=== PATIENT | male | born 1960 | race Caucasian/White ===

== ENCOUNTER 2018-04-16 06:17 | Inpatient (IN) | payer BC, OTHER ==
[~2018-04-16] VITALS: Ht 180.3 cm; Wt 126.0 kg
[2018-04-16] MEDS ORDERED: NITROGLYCERIN SINGLE TAB 0.4 MG SL ONE ×2 (06:37→06:59)
[2018-04-16] MEDS ORDERED: MORPHINE SULFATE 4 MG/ML, 1ML ONE ×2 (06:38→06:59)
[2018-04-16] MEDS ORDERED: METOPROLOL 1 MG/ML, 5ML ONE ×2 (06:38→06:59)
[2018-04-16] MEDS ORDERED: ASPIRIN 81 MG TABLET CHEW ONE (06:59)
[2018-04-16] MEDS ORDERED: METOPROLOL 1 MG/ML, 5ML IVPush PRN (07:00)
[2018-04-16] MEDS ORDERED: NITROGLYCERIN SINGLE TAB 0.4 MG SL PRN (07:00)
[2018-04-16] MEDS ORDERED: ASPIRIN 81 MG TABLET CHEW PO ONE (07:00)
[2018-04-16] MEDS ORDERED: MORPHINE SULFATE 4 MG/ML, 1ML IVPush PRN (07:00)
[2018-04-16 07:01] LABS: BASOPHILS # (AUTO) 0.03 x10^3/uL (0-0.1); BASOPHILS % (AUTO) 1 % (0-1); EOSINOPHILS # (AUTO) 0.11 x10^3/uL (0-0.4); EOSINOPHILS % (AUTO) 2 % (1-7); LYMPHOCYTES # (AUTO) 2.26 x10^3/uL (1-3.4); LYMPHOCYTES % (AUTO) 38 % (22-44); MD NO; MEAN CORPUSCULAR HEMOGLOBIN 30.8 pg (27.5-34.5); MEAN CORPUSCULAR HGB CONC 34.4 g/dL (33.2-36.2); MEAN CORPUSCULAR VOLUME 89.4 fL (81-97); MEAN PLATELET VOLUME 8.6 fL (7.4-10.4); MONOCYTES # (AUTO) 0.52 x10^3/uL (0.2-0.8); MONOCYTES % (AUTO) 9 % (2-9); NEUTROPHILS # (AUTO) 3.06 x10^3/uL (1.8-6.8); NEUTROPHILS % (AUTO) 51 % (42-75); PLATELET COUNT 227 x10^3/uL (130-400); RED BLOOD COUNT 5.27 x10^6/uL (4.38-5.82); RED CELL DISTRIBUTION WIDTH 13.2 % (9.4-14.8)
[2018-04-16 07:13] LABS: ALANINE AMINOTRANSFERASE 61 U/L (12-78); ALBUMIN 3.6 g/dL (3.4-5.0); ANION GAP 8 mmol/L (5-15); CALCIUM 8.6 mg/dL (8.5-10.1); CHLORIDE 109 mmol/L (98-107); CREATININE 1.08 mg/dL (0.7-1.3)
[2018-04-16 07:16] LABS: ALKALINE PHOSPHATASE 130 U/L (45-117); BILIRUBIN,TOTAL 0.5 mg/dL (0.2-1.0); TOTAL PROTEIN 7.3 g/dL (6.4-8.2)
[2018-04-16] MEDS ORDERED: ACETAMINOPHEN 325 MG TABLET PO PRN ×2 (07:30→15:30)
[2018-04-16] MEDS ORDERED: NITROGLYCERIN 0.4 MG BOTTLE (25 TABS) SL PRN (07:30)
[2018-04-16] MEDS ORDERED: ZOLPIDEM 5MG TABLET PO PRN (07:30)
[2018-04-16] MEDS ORDERED: ONDANSETRON 2MG/ML, 2ML IVP PRN (07:30)
[2018-04-16] MEDS ORDERED: NITROGLYCERIN 0.4 MG/SPRAY SL PRN (07:30)
[2018-04-16] MEDS ORDERED: morphine SULFATE 10 MG/ML, 1ML IV PRN (07:30)
[2018-04-16] MEDS ORDERED: FENTANYL PF 100 MCG/2ML ONE ×2 (07:35→08:34)
[2018-04-16] MEDS ORDERED: MIDAZOLAM 1 MG/ML, 5ML ONE (07:35)
[2018-04-16] MEDS ORDERED: VERAPAMIL 2.5 MG/ML, 2ML ONE (07:35)
[2018-04-16] MEDS ORDERED: HEPARIN 1,000 UNITS/ML, 10ML ONE (07:36)
[2018-04-16] MEDS ORDERED: LIDOCAINE 2%, 2ML ONE (07:36)
[2018-04-16] MEDS ORDERED: PRASUGREL 10 MG TABLET ONE (07:36)
[2018-04-16] MEDS ORDERED: BIVALIRUDIN 250 MG ONE ×2 (07:36→08:34)
[2018-04-16] MEDS ORDERED: NITROGLYCERIN 5 MG/ML, 10ML ONE (07:36)
[2018-04-16] MEDS ORDERED: ASPI-496 PO (07:59)
[2018-04-16] MEDS ORDERED: Benazepril PO (07:59)
[2018-04-16] MEDS ORDERED: HYDROCHLORATHIAZIDE PO (07:59)
[2018-04-16 08:22] LABS: CHOLESTEROL, TOTAL 232 mg/dL (140-239); HDL CHOL % 9 % (26-37); HDL CHOLESTEROL (DIRECT) 21 mg/dL (40-60); TRIGLYCERIDES 736 mg/dL (50-200)
[2018-04-16 08:27] LABS: TROPONIN I 0.366 ng/mL (0.000-0.045)
[2018-04-16] MEDS ORDERED: MIDAZOLAM 1 MG/ML, 2ML ONE (08:34)
[2018-04-16 08:44] LABS: HEMOGLOBIN A1C 7.4 % (4.2-6.3)
[2018-04-16] MEDS: SODIUM CHLORIDE FLUSH 10ML SYR IVF SCH ×2 (09:00→20:39)
[2018-04-16] MEDS ORDERED: NITROGLYCERIN 0.4 MG BOTTLE (25 TABS) SL ONE (10:49)
[2018-04-16] MEDS ORDERED: BIVALIRUDIN 250 MG in DEXTROSE 5% 50 ML IV SCH (11:04)
[2018-04-16] MEDS: SODIUM CHLORIDE 0.9% 1,000 ML IV SCH ×2 (11:04→19:04)
[2018-04-16 14:29] VITALS: BP 131/78
[2018-04-16] MEDS ORDERED: morphine SULFATE 10 MG/ML, 1ML IVPush PRN (15:30)
[2018-04-16] MEDS ORDERED: TEMAZEPAM 15 MG CAPSULE PO PRN (15:30)
[2018-04-16] MEDS ORDERED: POLYETHYLENE GLYCOL 17 GM PACKET PO PRN (15:30)
[2018-04-16] MEDS ORDERED: hydrALAzine 20 MG/ML, 1ML IVPush PRN (15:30)
[2018-04-16] MEDS ORDERED: ONDANSETRON 2MG/ML, 2ML IVPush PRN (15:30)
[2018-04-16 16:05] VITALS: BP 128/73
[2018-04-16] MEDS: METOPROLOL TARTRATE 50 MG TABLET PO SCH (18:22)
[2018-04-16 19:18] VITALS: BP 120/75
[2018-04-16] MEDS: LISINOPRIL 5 MG TABLET PO SCH (20:39)
[2018-04-16] MEDS ORDERED: ATORVASTATIN 80 MG TABLET PO SCH (21:00)
[2018-04-17 01:33] VITALS: BP 115/74
[2018-04-17 05:07] LABS: BASOPHILS # (AUTO) 0.03 x10^3/uL (0-0.1); BASOPHILS % (AUTO) 0 % (0-1); EOSINOPHILS # (AUTO) 0.17 x10^3/uL (0-0.4); EOSINOPHILS % (AUTO) 2 % (1-7); LYMPHOCYTES % (AUTO) 27 % (22-44); MD NO; MEAN CORPUSCULAR HEMOGLOBIN 30.9 pg (27.5-34.5); MEAN CORPUSCULAR HGB CONC 34.5 g/dL (33.2-36.2); MEAN CORPUSCULAR VOLUME 89.5 fL (81-97); MEAN PLATELET VOLUME 8.5 fL (7.4-10.4); MONOCYTES # (AUTO) 0.74 x10^3/uL (0.2-0.8); MONOCYTES % (AUTO) 8 % (2-9); NEUTROPHILS # (AUTO) 5.99 x10^3/uL (1.8-6.8); NEUTROPHILS % (AUTO) 64 % (42-75); PLATELET COUNT 217 x10^3/uL (130-400); RED BLOOD COUNT 5.09 x10^6/uL (4.38-5.82); RED CELL DISTRIBUTION WIDTH 13.2 % (9.4-14.8)
[2018-04-17 05:09] LABS: ALBUMIN 3.3 g/dL (3.4-5.0); ANION GAP 9 mmol/L (5-15); CALCIUM 8.9 mg/dL (8.5-10.1); CHLORIDE 104 mmol/L (98-107)
[2018-04-17 05:16] LABS: CHOL/HDL RATIO 8.7; CHOLESTEROL, TOTAL 226 mg/dL (140-239); CREATININE 0.88 mg/dL (0.7-1.3); FREE T4 (FREE THYROXINE) 0.89 ng/dL (0.76-1.46); HDL CHOL % 12 % (26-37); HDL CHOLESTEROL (DIRECT) 26 mg/dL (40-60); TRIGLYCERIDES 429 mg/dL (50-200)
[2018-04-17] MEDS ORDERED: ASPIRIN 81 MG TABLET EC ONE (05:44)
[2018-04-17] MEDS: METOPROLOL TARTRATE 50 MG TABLET PO SCH (05:47)
[2018-04-17] MEDS ORDERED: ASPIRIN 325 MG TABLET EC PO SCH (06:00)
[2018-04-17 06:55] VITALS: BP 124/76
[2018-04-17] MEDS ORDERED: GLIMEPIRIDE 1 MG TABLET PO SCH (08:00)
[2018-04-17] MEDS: LISINOPRIL 5 MG TABLET PO SCH (08:04)
[2018-04-17] MEDS: SODIUM CHLORIDE FLUSH 10ML SYR IVF SCH (08:05)
[2018-04-17] MEDS ORDERED: ENOXAPARIN 40 MG/0.4 ML SQ SCH (09:00)
[2018-04-17] MEDS ORDERED: PRASUGREL 10 MG TABLET PO SCH (09:00)
[2018-04-17] MEDS ORDERED: PRAS10TA4 PO (11:48)
[2018-04-17] MEDS ORDERED: METO50TA82 PO (11:48)
[2018-04-17] MEDS ORDERED: ATOR-2 PO (11:48)
[2018-04-17] MEDS ORDERED: LISI5TAB7 PO (11:48)
[2018-04-17] MEDS ORDERED: METF-649 PEG (12:04)
[2018-04-17 15:09] VITALS: BP 121/77
== END 2018-04-17 16:28 | disposition home or self-care (01) | DRG 247 ==
LOC: ED 07:29 → EDIP 07:36 → 5SO 09:29
PROVIDERS: ADMIT Internal Medicine; ATTEND Internal Medicine
PROC: 4A023N7 Measurement of Cardiac Sampling and Pressure, Left Heart, Percutaneous Approach (ICD-10-PCS; principal; 2018-04-16)
PROC: 027035Z Dilation of Coronary Artery, One Artery with Two Drug-eluting Intraluminal Devices, Percutaneous Approach (ICD-10-PCS; 2018-04-16)
PROC: B2111ZZ Fluoroscopy of Multiple Coronary Arteries using Low Osmolar Contrast (ICD-10-PCS; 2018-04-16)
PROC: B2151ZZ Fluoroscopy of Left Heart using Low Osmolar Contrast (ICD-10-PCS; 2018-04-16)
DX: I21.4 Non-ST elevation (NSTEMI) myocardial infarction (principal); E11.65 Type 2 diabetes mellitus with hyperglycemia; I25.110 Atherosclerotic heart disease of native coronary artery with unstable angina pectoris; E66.01 Morbid (severe) obesity due to excess calories; E78.5 Hyperlipidemia, unspecified; I11.9 Hypertensive heart disease without heart failure; I25.2 Old myocardial infarction; Z72.0 Tobacco use; Z79.82 Long term (current) use of aspirin; Z82.49 Family history of ischemic heart disease and other diseases of the circulatory system; Z68.38 Body mass index [BMI] 38.0-38.9, adult
CPT/HCPCS: 36415; 71045; 80048; 80053; 80061; 82040; 83036; 84439; 84443; 84484; 85025; 92978; 93005; 93306; 93458; 96361; 96374; 96375; 99156; 99157; C1753; C1769; C1894; C9601; J0583; J1644; J1650; J2250; J3010; J3490; C1725; C1874; C1887; J2270; Q9967